=== PATIENT | female | born 1965 | race Caucasian/White ===

== ENCOUNTER 2021-04-03 13:25 | Emergency (ER) | payer SELFPAY ==
[~2021-04-03] VITALS: Ht 160 cm; Wt 77.0 kg
[~2021-04-03 13:25] MED LIST: TRAM50TA2 PO
--- NOTE | 2021-04-03 13:43 | ED Upper Extremity ---
General Chief Complaint: Trauma-Non Activation Stated Complaint: R ARM AND L LEG PAIN- FELL Nursing Triage Note: ARRIVED VIA AMB TO FAST TRACK WITH A OBVIOUS DEFORMITY TO HER RIGHT HAND/WIRST. STATES SHE WAS CHASING HER DOG AND FELL GETTING COUGHT IN THE PORCH RAILING GOING OVER THE TOP LANDING ON HER HEAD. COMPLAINS OF RIGHT HAND AND LEFT LEG PAIN. Source: patient Exam Limitations: no limitations (GABY ESTEVES APRN) History of Present Illness Date Seen by Provider: Apr 03, 2021 Time Seen by Provider: 13:41 Initial Comments To ER with c/o right wrist pain and deformity after fall off of porch railing while chasing her dog. Did hit her head but no loc, no headache no vomiting no OAC use. Also c/o left knee pain Onset: just prior to arrival Severity: moderate Pain/Injury Location: right wrist Method of Injury: fell Modifying Factors: Worse With Movement (GABY ESTEVES APRN) Allergies and Home Medications Allergies Coded Allergies: No Known Drug Allergies (Unverified , 09/26/14) Patient Home Medication List Home Medication List Reviewed: Yes (GABY ESTEVES APRN) Hydrocodone/Acetaminophen (Hydrocodone-Acetamin 5-325 mg) 1 Each Tablet, 1 TAB PO Q4H PRN for PAIN-MODERATE (5-7) Prescribed by: GABY ESTEVES on 04/03/21 1430 Tramadol Hcl (Tramadol Hcl) 50 Mg Tablet, 50 MG PO Q6H Prescribed by: JAXSON HASSAN on 09/26/14 1607 Review of Systems Constitutional: see HPI EENTM: see HPI Respiratory: no symptoms reported Cardiovascular: no symptoms reported Genitourinary: no symptoms reported Musculoskeletal: no symptoms reported Skin: no symptoms reported Psychiatric/Neurological: No Symptoms Reported (GABY ESTEVES APRN) Past Llslvrf-Kwbdam-Yhxknv Hx Patient Social History Smoking Status: Never a Smoker Substance use?: No Alcohol Use?: No (GABY ESTEVES APRN) Immunizations Up To Date Second COVID19 Vaccination Cash: 03/10 COVID19 Vaccine Business Intelligence Developer: UNKNOWN (GABY ESTEVES APRN) Seasonal Allergies Seasonal Allergies: No (GABY ESTEVES APRN) Past Medical History Adenoidectomy, Appendectomy, Tonsillectomy Chronic Constipation (GABY ESTEVES APRN) Family Medical History No Pertinent Family Hx (GABY ESTEVES APRN) Physical Exam Vital Signs Vital Signs - First Documented 04/03/21 04/03/21 13:30 15:16 Temp 36.3 Pulse 114 Resp 16 B/P (MAP) 146/91 (109) Pulse Ox 96 O2 Delivery Room Air (DELMY HEDRICK ) Vital Signs Capillary Refill : Less Than 3 Seconds (GABY ESTEVES APRN) Height, Weight, BMI Height: 5'5" Weight: 131lbs. oz. 59.835708sz; 30.00 BMI Method:Stated General Appearance: WD/WN, no apparent distress Respiratory: no respiratory distress, no accessory muscle use Shoulder: normal inspection, non-tender Elbow/Forearm: normal inspection, non-tender, no evidence of injury Wrist: Yes deformity (no abrasions or lacerations to suggest open fracture), Yes limited ROM Hand: normal inspection, non-tender, Right Neurologic/Tendon: normal motor functions Neurologic/Psychiatric: alert, normal mood/affect, oriented x 3 Skin: normal color, warm/dry (GABY ESTEVES APRN) Progress/Results/Core Measures Results/Orders Blood Pressure Mean: 109 Departure Communication (Admissions) Family Conversation 1510-placed in sugar tong splint using 3 inch ortoglass. NAME: UZMA GUARDADO MED REC#: [id number] PT STATUS: REG ER : 1965 PHYSICIAN: GABY ESTEVES APRN ADMIT DATE: 04/03/21/ER Draft Date of Exam:04/03/21 WRIST, RIGHT, 3 VIEWS OR MORE EXAMINATION: Right wrist radiographs, 3 views. COMPARISON: None. HISTORY: 55-year-old female, right wrist pain and injury. FINDINGS: There is a dorsal displaced and angulated fracture of the distal radial metaphysis. There is probable intra-articular fracture extension in the region of the lunate fossa on the oblique view. There is also a displaced fracture extending through the base of the ulnar styloid. 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 There is no identified radiopaque foreign body. IMPRESSION: 1. Dorsally displaced and angulated fracture of the distal radial metaphysis with probable intra-articular fracture extension to the lunate fossa. 2. Displaced fracture through the base of the ulnar styloid. Dictated on workstation # [id number] Dict: 04/03/21 1406 Trans: 04/03/[address] [facility] [id number] Interpreted by: ADDIE LINARES MD Electronically signed by: (GABY ESTEVES APRN) Impression Primary Impression: Wrist fracture, closed Disposition: 01 HOME, SELF-CARE Condition: Stable Departure-Patient Inst. Decision time for Depature: 14:27 (GABY ESTEVES APRN) Referrals: NO,LOCAL PHYSICIAN (PCP) Primary Care Physician STEPHANIE LYON MD, MICHAEL P MD Patient Instructions: Wrist Fracture (DC) Add. Discharge Instructions: 1. splint at all times until you follow up with orthopedics. Call an orthopedist of your choosing on Tuesday to make an appointment to be seen next week. Elevate the wrist as much as possible. Take pain medication as directed. All discharge instructions reviewed with patient and/or family. Voiced understanding. Scripts Hydrocodone/Acetaminophen (Hydrocodone-Acetamin 5-325 mg) 1 Each Tablet 1 TAB PO Q4H PRN for PAIN-MODERATE (5-7), #20 TAB Prov: GABY ESTEVES APRN 04/03/21 ATTENDING PHYSICIAN NOTE: I WAS PHYSICALLY PRESENT ER PHYSICIAN WHEN THIS PATIENT WAS IN ER, BUT I WAS NOT INVOLVED IN DECISION MAKING OR ANY CARE OF THIS PATIENT. (DELMY HEDRICK DO) GABY ESTEVES APRN Apr 03, 2021 13:43 DELMY HEDRICK DO Apr 05, 2021 20:20
[2021-04-03] MEDS ORDERED: KETOROLAC 30 MG/ML VIAL IVP ONE (13:45)
[2021-04-03] MEDS ORDERED: fentaNYL INJ 100 MCG/2 ML AMP IVP ONE (13:45)
--- NOTE | 2021-04-03 14:18 | Diagnostic Imaging Report ---
EXAMINATION: Right wrist radiographs, 3 views. COMPARISON: None. HISTORY: 55-year-old female, right wrist pain and injury. FINDINGS: There is a dorsal displaced and angulated fracture of the distal radial metaphysis. There is probable intra-articular fracture extension in the region of the lunate fossa on the oblique view. There is also a displaced fracture extending through the base of the ulnar styloid. 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 There is no identified radiopaque foreign body. IMPRESSION: 1. Dorsally displaced and angulated fracture of the distal radial metaphysis with probable intra-articular fracture extension to the lunate fossa. 2. Displaced fracture through the base of the ulnar styloid. Dictated by: Dictated on workstation # [id number]
[2021-04-03] MEDS ORDERED: ACHD5005 PO (14:29)
--- NOTE | 2021-04-03 14:55 | Diagnostic Imaging Report ---
INDICATION: Left leg injury from a fall. FINDINGS: AP and lateral views of the left tibia-fibula show no fracture, dislocation, or other acute abnormalities. IMPRESSION: Negative left tibia-fibula. Dictated by: Dictated on workstation # [id number]
[2021-04-03] MEDS ORDERED: HYDROcodone/APAP 5 MG/325 MG (LORTAB) TAB PO ONE (15:00)
[2021-04-03 15:16] VITALS: BP 132/82
== END 2021-04-03 15:16 | disposition home or self-care (01) ==
LOC: EDUNIT# 13:25 → ER 13:27
DX: S52.611A Displaced fracture of right ulna styloid process, initial encounter for closed fracture (principal); S52.591A Other fractures of lower end of right radius, initial encounter for closed fracture; W17.89XA Other fall from one level to another, initial encounter
CPT/HCPCS: 29105; 73110; 73590

== ENCOUNTER 2021-05-06 12:34 | Emergency (ER) | payer SELFPAY ==
[~2021-05-06] VITALS: Ht 165 cm; Wt 72.0 kg
[~2021-05-06 12:34] MED LIST changes: +ACHD5005 PO
[2021-05-06 12:35] VITALS: BP 132/94
[2021-05-06] MEDS ORDERED: SULF1TAB38 PO (13:09)
--- NOTE | 2021-05-06 13:09 | ED Integumentary General ---
General Chief Complaint: Skin/Wound Problems Stated Complaint: KNOT ON RIGHT SIDE OF HEAD Nursing Triage Note: ARRIVED VIA AMB WITH COMPLAINTS OF A KNOT ABSCESS ON THE RIGHT SIDE OF HIS HEAD. Source: patient Exam Limitations: no limitations History of Present Illness Date Seen by Provider: May 06, 2021 Time Seen by Provider: 12:20 Initial Comments Patient to the ER by private conveyance with chief complaint for 5 days of swelling on the right side of her head. She wears a wig and she thinks maybe the glue caused some infection. She has drained a couple times in the keeps growing. She is not on antibiotics. She does not follow with a primary care doctor. She is not on any immunocompromising medications. Allergies and Home Medications Allergies Coded Allergies: No Known Drug Allergies (Unverified , 09/26/14) Patient Home Medication List Home Medication List Reviewed: Yes Hydrocodone/Acetaminophen (Hydrocodone-Acetamin 5-325 mg) 1 Each Tablet, 1 TAB PO Q4H PRN for PAIN-MODERATE (5-7) Prescribed by: GABY ESTEVES on 04/03/21 1430 Tramadol Hcl (Tramadol Hcl) 50 Mg Tablet, 50 MG PO Q6H Prescribed by: JAXSON HASSAN on 09/26/14 1607 Review of Systems Review of Systems Constitutional: No chills, No diaphoresis EENTM: No ear discharge, No ear pain Respiratory: No cough, No phlegm Cardiovascular: No chest pain, No palpitations Gastrointestinal: No abdominal pain, No nausea Genitourinary: No discharge, No dysuria Musculoskeletal: No back pain, No joint pain Skin: see HPI All Other Systems Reviewed Negative Unless Noted: Yes Past Zrmkvtt-Igkvlq-Swionm Hx Patient Social History Tobacco Use?: No Smoking Status: Never a Smoker Use of E-Cig and/or Vaping dev: No Substance use?: No Alcohol Use?: No Immunizations Up To Date Second COVID19 Vaccination Cash: 03/10 Seasonal Allergies Seasonal Allergies: No Past Medical History Adenoidectomy, Appendectomy, Tonsillectomy Chronic Constipation Family Medical History No Pertinent Family Hx Physical Exam Vital Signs Vital Signs - First Documented 05/06/21 12:35 Temp 36.9 Pulse 109 Resp 16 B/P (MAP) 132/94 (107) Pulse Ox 97 O2 Delivery Room Air Capillary Refill : Less Than 3 Seconds General Appearance: WD/WN, no apparent distress HEENT: PERRL/EOMI, pharynx normal Neck: full range of motion, normal inspection Cardiovascular: normal peripheral pulses, regular rate, rhythm Respiratory: no respiratory distress, no accessory muscle use Skin: other (3 cm round nodule with fluctuance over the right frontal/parietal scalp with no central pointing.) Procedures/Interventions I&D : Site: Right frontal parietal scalp Blade Size: 11 I & D Procedure: betadine prep (Alcohol), sterile dressing applied Progress Skin was cleaned with alcohol, infiltrated with 1 cc of 1% lidocaine without epinephrine. When the skin was ascertained to be numb we used an 11 blade scalpel to make a crosswise incision and expressed about 3 to 5 cc of thin purulent material. Patient tolerated well. Clean dry sterile gauze dressing was placed. Progress/Results/Core Measures Results/Orders Vital Signs/I&O 05/06/21 12:35 Temp 36.9 Pulse 109 Resp 16 B/P (MAP) 132/94 (107) Pulse Ox 97 O2 Delivery Room Air Blood Pressure Mean: 107 Departure Impression Primary Impression: Abscess Disposition: 01 HOME, SELF-CARE Condition: Stable Departure-Patient Inst. Decision time for Depature: 13:07 Referrals: NO,LOCAL PHYSICIAN (PCP/Family) Primary Care Physician Patient Instructions: Abscess Incision and Drainage (DC) Add. Discharge Instructions: Keep skin clean with regular soap and water or shampoo. Change the dressing at least daily or more frequently for becomes soiled until it stops draining. Bactrim 1 tablet twice a day for the next week to prevent recurrence. All discharge instructions reviewed with patient and/or family. Voiced understanding. Scripts Sulfamethoxazole/Trimethoprim (Bactrim Ds Tablet) 1 Each Tablet 1 EACH PO BID for 7 Days, #14 TAB 0 Refills Prov: TABATHA FAYE 05/06/21 Work/School Note: Work Release Form Date Seen in the Emergency Department: May 06, 2021 Return to Work: May 07, 2021 Restrictions: No Restrictions TABATHA FAYE May 06, 2021 13:09
== END 2021-05-06 13:11 | disposition home or self-care (01) ==
LOC: EDUNIT# 12:34 → ER 12:35
DX: L02.811 Cutaneous abscess of head [any part, except face] (principal)
CPT/HCPCS: 10060

== ENCOUNTER 2021-05-23 18:35 | Emergency (ER) | payer SELFPAY ==
[~2021-05-23] VITALS: Ht 160 cm; Wt 79.0 kg
[~2021-05-23 18:35] MED LIST changes: +SULF1TAB38 PO
--- NOTE | 2021-05-23 19:04 | ED Upper Extremity ---
General Stated Complaint: FALL/RECHECK RIGHT WRIST Source: patient Exam Limitations: no limitations History of Present Illness Date Seen by Provider: May 23, 2021 Time Seen by Provider: 18:56 Initial Comments To ER with reports of a fall twice and is not sure if she reinjured her already broken right wrist. I saw her here on April 03 of this year for a dorsally displaced right radius fracture. She was placed in a sugar tong splint and instructed to follow-up with orthopedics. She was given a prescription for hydrocodone. She has not made attempts to follow-up with orthopedics and she has removed the splint that I placed at that time. She comes in today due to ongoing swelling and pain in her wrist. She is been smoking meth to help with the pain she informed RN. Onset: other Severity: moderate Pain/Injury Location: right wrist Method of Injury: fell Modifying Factors: Worse With Movement Allergies and Home Medications Allergies Coded Allergies: No Known Drug Allergies (Unverified , 09/26/14) Patient Home Medication List Home Medication List Reviewed: Yes Hydrocodone/Acetaminophen (Hydrocodone-Acetamin 5-325 mg) 1 Each Tablet, 1 TAB PO Q4H PRN for PAIN-MODERATE (5-7) Prescribed by: GABY ESTEVES on 04/03/21 1430 Sulfamethoxazole/Trimethoprim (Bactrim Ds Tablet) 1 Each Tablet, 1 EACH PO BID Prescribed by: TABATHA FAYE on 05/06/21 1309 Tramadol Hcl (Tramadol Hcl) 50 Mg Tablet, 50 MG PO Q6H Prescribed by: JAXSON HASSAN on 09/26/14 1607 Review of Systems Constitutional: see HPI EENTM: see HPI Respiratory: no symptoms reported Cardiovascular: no symptoms reported Genitourinary: no symptoms reported Musculoskeletal: see HPI Skin: no symptoms reported Psychiatric/Neurological: No Symptoms Reported Past Akfbbtz-Djczzn-Zhkysg Hx Immunizations Up To Date Second COVID19 Vaccination Cash: 03/10 Seasonal Allergies Seasonal Allergies: No Past Medical History Adenoidectomy, Appendectomy, Tonsillectomy Chronic Constipation Family Medical History No Pertinent Family Hx Physical Exam Vital Signs Vital Signs - First Documented 05/23/21 18:45 Temp 36.4 Pulse 86 Resp 18 B/P (MAP) 127/84 (98) Pulse Ox 96 O2 Delivery Room Air Capillary Refill : Height, Weight, BMI Height: 5'5" Weight: 131lbs. oz. 59.013681hp; 26.00 BMI Method:Stated General Appearance: WD/WN, no apparent distress Respiratory: no respiratory distress, no accessory muscle use Shoulder: normal inspection, non-tender Elbow/Forearm: normal inspection, non-tender Wrist: Yes deformity, Yes limited ROM, Yes pain, Yes soft tissue tenderness Hand: normal inspection, non-tender Neurologic/Psychiatric: alert, normal mood/affect, oriented x 3 Skin: normal color, warm/dry Progress/Results/Core Measures Results/Orders My Orders Orders - GABY ESTEVES APRN Wrist, Right, 3 Views Or More (05/23/21 18:53) Rx-Hydrocodone/Apap 5-325 Mg (Rx-Vicodin (05/23/21 19:00) Medications Given in ED Current Medications Medications Dose Ordered Sig/Rebeca Route Start Time Stop Time Status Last Admin Dose Admin Acetaminophen/ Hydrocodone Bitart 1 ea Q4H PRN PO 05/23/21 19:00 05/23/21 19:14 1 EA Vital Signs/I&O 05/23/21 18:45 Temp 36.4 Pulse 86 Resp 18 B/P (MAP) 127/84 (98) Pulse Ox 96 O2 Delivery Room Air Departure Communication (Admissions) NAME: UZMA GUARDADO [facility] REC#: [id number] PT STATUS: REG ER : 1965 PHYSICIAN: GABY ESTEVES APRN ADMIT DATE: 05/23/21/ER Draft Date of Exam:05/23/21 WRIST, RIGHT, 3 VIEWS OR MORE INDICATION: Status post fall a month ago. Recent fall today. TECHNIQUE: Three views of the right wrist. CORRELATION STUDY: 04/03/2021. FINDINGS: Overlying splint material is present obscuring detail. There is again demonstration of a comminuted, impacted, distal right radius fracture. There has been significant progression in the severity of dorsal displacement, now nearly the width of the bone. Significant impaction retraction of the main distal fracture fragment. The carpal bones are displaced with the distal radial component. Impacted outwardly displaced radial styloid fracture is also noted. Advanced degenerative changes at the base of the thumb. Additional degenerative changes at the scaphoid trapezium/trapezoid articulation with osteophyte formation. IMPRESSION: 1. Dorsally displaced angulated fracture at the distal radius. There has been increase in severity of dorsal displacement and severity of retraction impaction when compared to prior study. 2. Displaced fracture through the base of the ulnar styloid is again demonstrated as well. Dictated on workstation # [id number] Dict: 05/23/211932 Trans: 05/23/211937 PJE [id number] Interpreted by: YSABEL SANTIAGO DO Electronically signed by: Given a volar wrist splint Impression Primary Impression: Wrist fracture, closed Disposition: 01 HOME, SELF-CARE Condition: Stable Departure-Patient Inst. Decision time for Depature: 18:58 Referrals: NO,LOCAL PHYSICIAN (PCP) Primary Care Physician STEPHANIE LYON MD,JM GILLESPIE MD, MD Patient Instructions: Wrist Fracture (DC) Add. Discharge Instructions: 1. Once again, you must follow-up with orthopedics. Call one of the physicians listed Tuesday to make an appointment to be seen for follow-up. GABY ESTEVES STUDIO MANAGER May 23, 2021 19:03
--- NOTE | 2021-05-23 19:38 | Diagnostic Imaging Report ---
INDICATION: Status post fall a month ago. Recent fall today. TECHNIQUE: Three views of the right wrist. CORRELATION STUDY: 04/03/2021. FINDINGS: Overlying splint material is present obscuring detail. There is again demonstration of a comminuted, impacted, distal right radius fracture. There has been significant progression in the severity of dorsal displacement, now nearly the width of the bone. Significant impaction retraction of the main distal fracture fragment. The carpal bones are displaced with the distal radial component. Impacted outwardly displaced radial styloid fracture is also noted. Advanced degenerative changes at the base of the thumb. Additional degenerative changes at the scaphoid trapezium/trapezoid articulation with osteophyte formation. IMPRESSION: 1. Dorsally displaced angulated fracture at the distal radius. There has been increase in severity of dorsal displacement and severity of retraction impaction when compared to prior study. 2. Displaced fracture through the base of the ulnar styloid is again demonstrated as well. Dictated by: Dictated on workstation # [id number]
[2021-05-23 19:55] VITALS: BP 127/79
== END 2021-05-23 19:56 | disposition home or self-care (01) ==
LOC: EDUNIT# 18:35 → ER 18:39
DX: S52.501D Unspecified fracture of the lower end of right radius, subsequent encounter for closed fracture with routine healing (principal); S52.611D Displaced fracture of right ulna styloid process, subsequent encounter for closed fracture with routine healing; W19.XXXD Unspecified fall, subsequent encounter
CPT/HCPCS: 73110; 99283

== ENCOUNTER 2022-12-06 19:08 | Inpatient (IN) | payer SELFPAY ==
[~2022-12-06] VITALS: Ht 165.1 cm; Wt 79.0 kg
[~2022-12-06 19:08] MED LIST changes: +ACETAMINOPHEN 500 MG TAB (TYLENOL) PO PRN; +ASPIRIN 81 MG CHEW (CHILDREN'S ASA) PO ONE; +CEFEPIME 1,000 MG/NS 50 ML IVPB IV NR; +ENOXAPARIN 80 MG/0.8 ML (LOVENOX) SYR SC ONE; +IOHEXOL 350 MG/ML 100 ML (OMNIPAQUE 350) VIAL IV ONE; +NS 100 ML (IVPB) BAG IV ONE; +NS IV 1000 ML 1,000 ML IV SCH; +cefTRIAXone INJ 2,000 MG in NS (IVPB) 50 ML IV SCH
[2022-12-06] MEDS ORDERED: KCL 20 MEQ TAB (K-DUR) PO NR (19:30)
[2022-12-06] MEDS ORDERED: diphenhydrAMINE 50 MG/ML INJ (BENADRYL) IVP PRN (19:30)
[2022-12-06] MEDS ORDERED: polyethylene glycoL POWDER 17 GM (MIRALAX) PACK PO PRN (19:30)
[2022-12-06] MEDS ORDERED: ONDANSETRON 4 MG (ZOFRAN) ORAL DISSOLVE TAB PO PRN (19:30)
[2022-12-06] MEDS ORDERED: ANTACID SUSP 30 ML UDC (MYLANTA) PO PRN (19:30)
[2022-12-06] MEDS ORDERED: MILK OF MAGNESIA 400 MG/5 ML 30 ML UDC PO PRN (19:30)
[2022-12-06] MEDS ORDERED: CALCIUM CARBONATE 500 MG (TUMS) TAB.CHEW PO PRN (19:30)
[2022-12-06] MEDS ORDERED: LACTULOSE SYRUP 10GM/15ML (ENULOSE) 30ML UDC PO PRN (19:30)
[2022-12-06] MEDS ORDERED: diphenhydrAMINE 25 MG TAB (BENADRYL) PO PRN (19:30)
[2022-12-06] MEDS ORDERED: BISACODYL 10 MG SUPP (DULCOLAX) PR PRN (19:30)
[2022-12-06] MEDS: LACTATED RINGERS 1,000 ML IV SCH (19:51)
[2022-12-06] MEDS ORDERED: AZITHROMYCIN 500 MG/NS 250 ML IVPB IV SCH ×2 (20:00)
[2022-12-06] MEDS: RT-ALBUTEROL/IPRATROPIUM 3 ML (DUONEB) VIAL IH SCH (21:49)
[2022-12-07] MEDS ORDERED: CEFEPIME 1,000 MG/NS 50 ML IVPB IV SCH ×2
[2022-12-07] MEDS: RT-ALBUTEROL/IPRATROPIUM 3 ML (DUONEB) VIAL IH SCH ×4 (02:35→21:58)
[2022-12-07] MEDS: ACETAMINOPHEN 325 MG TABLET PO PRN (02:42)
[2022-12-07] MEDS: IBUPROFEN TABLET 200 MG TAB PO PRN ×3 (03:22→16:43)
[2022-12-07] MEDS ORDERED: NS IV 1000 ML 1,000 ML IV SCH (03:30)
[2022-12-07 08:00] VITALS: BP 85/53
[2022-12-07] MEDS ORDERED: cefTRIAXone 2,000 MG/NS 50 ML IVPB IV ONE ×2 (10:00)
[2022-12-07 12:00] VITALS: BP 99/63
[2022-12-07 15:18] VITALS: BP 90/55
[2022-12-07 16:35] VITALS: BP 109/72
[2022-12-07] MEDS: fentaNYL INJ 100 MCG/2 ML AMP IV PRN (16:42)
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
[2022-12-07] MEDS ORDERED: LACTATED RINGERS 1,000 ML IV SCH (17:45)
[2022-12-07] MEDS: ENOXAPARIN 40 MG/0.4 ML (LOVENOX) SYR SC SCH (17:50)
[2022-12-07] MEDS: LACTATED RINGERS 1,000 ML IV SCH ×2 (17:53→20:44)
[2022-12-07] MEDS: CLINDAMYCIN 900 MG/50 ML IVPB 50 ML IV SCH (17:59)
[2022-12-07] MEDS ORDERED: LACTATED RINGERS 1,000 ML IV STA (18:19)
[2022-12-07 20:02] VITALS: BP 103/69
[2022-12-07] MEDS: cefTRIAXone INJ 2,000 MG in NS (IVPB) 50 ML IV SCH (21:40)
[2022-12-07 23:09] VITALS: BP 99/64
[2022-12-08] MEDS: CLINDAMYCIN 900 MG/50 ML IVPB 50 ML IV SCH ×3 (02:52→16:31)
[2022-12-08] MEDS: fentaNYL INJ 100 MCG/2 ML AMP IV PRN ×2 (02:53→20:01)
[2022-12-08] MEDS: RT-ALBUTEROL/IPRATROPIUM 3 ML (DUONEB) VIAL IH SCH ×4 (02:56→22:05)
[2022-12-08 03:35] VITALS: BP 107/66
[2022-12-08] MEDS: LACTATED RINGERS 1,000 ML IV SCH ×4 (06:32→16:31)
[2022-12-08 07:43] LABS: EOSINOPHILS % (AUTO) 0 % (0-10); HEMATOCRIT 34 % (35-52); MEAN CORPUSCULAR VOLUME 94 fL (80-99); MEAN PLATELET VOLUME 11.5 fL (9.0-12.2)
[2022-12-08 07:44] LABS: BASOPHILS % (AUTO) 0 % (0-10); HEMOGLOBIN 11.7 g/dL (11.5-16.0); LYMPHOCYTES % (AUTO) 15 % (12-44); MEAN CORPUSCULAR HEMOGLOBIN 32 pg (25-34); MEAN CORPUSCULAR HGB CONC 34 g/dL (32-36); MONOCYTES # (AUTO) 0.7 10^3/uL (0.0-1.0); MONOCYTES % (AUTO) 12 % (0-12); NEUTROPHILS # (AUTO) 4.6 10^3/uL (1.8-7.8); NEUTROPHILS % (AUTO) 72 % (42-75); PLATELET COUNT 64 10^3/uL (130-400); WHITE BLOOD COUNT 6.4 10^3/uL (4.3-11.0)
[2022-12-08 07:46] VITALS: BP 103/56
[2022-12-08 08:04] LABS: POTASSIUM 3.3 MMOL/L (3.6-5.0)
[2022-12-08 08:06] LABS: CALCIUM 7.9 MG/DL (8.5-10.1)
[2022-12-08 08:10] LABS: CREATININE SERUM 0.56 MG/DL (0.60-1.30)
--- NOTE | 2022-12-08 08:28 | Diagnostic Imaging Report ---
INDICATION: Chest pain. Frontal chest obtained at 5:13 p.m. and compared to 05/12/2022. FINDINGS: Heart is normal in size. There is no infiltrate in the right lung base suspicious for pneumonia. There is no pneumothorax or pleural fluid. IMPRESSION: New infiltrate in the right lung base suspicious for pneumonia. Dictated by: Dictated on workstation # [id number]
--- NOTE | 2022-12-08 08:28 | Diagnostic Imaging Report ---
Technique: CTA of the chest was performed with contrast. 3-D reformats were obtained and reviewed. Dose reduction techniques were utilized. COMPARISON: Chest radiograph performed earlier the same day. Reason for exam: Shortness of breath. Chest pain. Elevated D-dimer. FINDINGS: This helical CT pulmonary angiogram is diagnostic to the subsegmental level branches of the pulmonary artery and demonstrates no pulmonary emboli. The heart and great vessels are unremarkable. There is no pericardial effusion. There is no axillary, mediastinal, or hilar adenopathy. Trace right-sided pleural effusion is seen with dependent opacities in the lung bases, right greater than left. Osseous structures appear normal. Posterior fusion changes are visualized from T12 extending into the lumbar spine. There is diffuse wall thickening of the esophagus. There is suggestion of edema within the posterior mediastinum Nodular contour of the liver is seen. There is hepatosplenomegaly. IMPRESSION: 1. No acute pulmonary embolus. 2. Trace right-sided pleural effusion with dependent opacities in the lung bases. Findings may represent atelectasis and/or infection. 3. Diffuse wall thickening of the esophagus. Findings could represent esophagitis. Malignancy is not excluded and correlation with patient history and symptoms is recommended. Endoscopy may also be considered to further evaluate. 4. Nodular contour of the liver, which can be seen with cirrhosis. Hepatosplenomegaly is also noted. Dictated by: Dictated on workstation # [id number]
[2022-12-08] MEDS: SENNOSIDES 8.6 MG (SENOKOT) TAB PO SCH ×2 (09:12→21:20)
[2022-12-08] MEDS: cefTRIAXone INJ 2,000 MG in NS (IVPB) 50 ML IV SCH ×2 (09:12→20:06)
[2022-12-08] MEDS: DOCUSATE SODIUM 100 MG (COLACE) CAP PO SCH ×2 (09:12→21:20)
[2022-12-08 10:13] LABS: HEMATOCRIT 41 % (35-52); HEMOGLOBIN 14.4 g/dL (11.5-16.0); MEAN CORPUSCULAR HEMOGLOBIN 32 pg (25-34); MEAN CORPUSCULAR HGB CONC 35 g/dL (32-36); MEAN CORPUSCULAR VOLUME 92 fL (80-99); WHITE BLOOD COUNT 8.9 10^3/uL (4.3-11.0)
[2022-12-08 10:14] LABS: BASOPHILS % (AUTO) 1 % (0-10); EOSINOPHILS % (AUTO) 1 % (0-10); LYMPHOCYTES # (AUTO) 1.1 X 10^3 (1.0-4.0); LYMPHOCYTES % (AUTO) 12 % (12-44); MEAN PLATELET VOLUME 10.4 fL (9.0-12.2); MONOCYTES # (AUTO) 0.9 X 10^3 (0.0-1.0); MONOCYTES % (AUTO) 10 % (0-12); NEUTROPHILS # (AUTO) 6.7 X 10^3 (1.8-7.8); NEUTROPHILS % (AUTO) 76 % (42-75); PLATELET COUNT 64 10^3/uL (130-400)
[2022-12-08 10:16] LABS: FIBRIN DEGRADATION PRODUCTS 3.42 UG/ML (0.00-0.49); INR 1.2 (0.8-1.4); PROTHROMBIN TIME PATIENT 14.9 SEC (12.2-14.7)
[2022-12-08 10:17] LABS: ALANINE AMINOTRANSFERASE 126 U/L (0-55); ALKALINE PHOSPHATASE 73 U/L (40-136); BILIRUBIN,TOTAL 1.5 MG/DL (0.1-1.0); BUN/CREATININE RATIO 22; CALCIUM 8.8 MG/DL (8.5-10.1); CARBON DIOXIDE 19 MMOL/L (21-32); CHLORIDE 99 MMOL/L (98-107); CREATININE SERUM 0.79 MG/DL (0.60-1.30); GFR ESTIMATED 87; GLUCOSE 129 MG/DL (70-105); POTASSIUM 3.1 MMOL/L (3.6-5.0); SODIUM 126 MMOL/L (135-145)
[2022-12-08 10:18] LABS: ALBUMIN 3.3 GM/DL (3.2-4.5); LIPASE 19 U/L (8-78); TOTAL PROTEIN 7.4 GM/DL (6.4-8.2)
[2022-12-08 10:22] LABS: HEMOGLOBIN 11.5 g/dL (11.5-16.0); MEAN CORPUSCULAR HEMOGLOBIN 32 pg (25-34); WHITE BLOOD COUNT 6.5 10^3/uL (4.3-11.0)
[2022-12-08 10:23] LABS: BASOPHILS % (AUTO) 0 % (0-10); EOSINOPHILS % (AUTO) 0 % (0-10); HEMATOCRIT 34 % (35-52); LYMPHOCYTES # (AUTO) 0.9 X 10^3 (1.0-4.0); LYMPHOCYTES % (AUTO) 13 % (12-44); MEAN CORPUSCULAR HGB CONC 34 g/dL (32-36); MEAN CORPUSCULAR VOLUME 94 fL (80-99); MEAN PLATELET VOLUME 11.4 fL (9.0-12.2); MONOCYTES # (AUTO) 0.7 X 10^3 (0.0-1.0); MONOCYTES % (AUTO) 11 % (0-12); NEUTROPHILS # (AUTO) 4.9 X 10^3 (1.8-7.8); NEUTROPHILS % (AUTO) 75 % (42-75); PLATELET COUNT 56 10^3/uL (130-400)
[2022-12-08 10:24] LABS: POTASSIUM 3.3 MMOL/L (3.6-5.0)
[2022-12-08 10:25] LABS: ALBUMIN 2.5 GM/DL (3.2-4.5); BILIRUBIN,TOTAL 1.5 MG/DL (0.1-1.0); CALCIUM 7.7 MG/DL (8.5-10.1); CREATININE SERUM 0.61 MG/DL (0.60-1.30); TOTAL PROTEIN 5.7 GM/DL (6.4-8.2)
[2022-12-08 10:26] LABS: AMPHETAMINE SCREEN, URINE POSITIVE (NEGATIVE); BARBITURATE SCREEN URINE NEGATIVE (NEGATIVE); BENZODIAZEPINES SCREEN URINE NEGATIVE (NEGATIVE); CANNABINOID SCREEN, URINE NEGATIVE (NEGATIVE); COCAINE SCREEN URINE NEGATIVE (NEGATIVE); METHADONE STAT NEGATIVE (NEGATIVE); OPIATE SCREEN URINE NEGATIVE (NEGATIVE); OXYCODONE STAT POSITIVE (NEGATIVE); PROPOXYPHENE STAT NEGATIVE (NEGATIVE); TRICYCLIC ANTIDEPRESSANTS SCRE NEGATIVE (NEGATIVE)
[2022-12-08] MEDS ORDERED: HOLD METFORMIN - RECEIVED CONTRAST 20 ML VIAL IV SCH (10:30)
[2022-12-08] MEDS ORDERED: IOHEXOL 350 MG/ML 100 ML (OMNIPAQUE 350) VIAL IV ONE (10:30)
[2022-12-08] MEDS ORDERED: NS 100 ML (IVPB) BAG IV ONE (10:30)
[2022-12-08 11:28] VITALS: BP 115/60
--- NOTE | 2022-12-08 12:46 | Diagnostic Imaging Report ---
EXAM: CT right wrist with intravenous contrast. DATE: December 08, 2022. INDICATION: 57-year-old female, right hand and wrist pain. History of bacteremia. COMPARISON: Right wrist radiographs May 23, 2021. TECHNIQUE: Axial CT images of the wrist were obtained with intravenous contrast. Coronal and sagittal reformats were obtained and provided. All CT scans use one or more of the following dose optimizing techniques: automated exposure control, MA and/or KvP adjustment based on patient size and exam type or iterative reconstruction. FINDINGS: There is a large first carpometacarpal joint effusion. There is moderate joint space loss of the first carpometacarpal joint. There is osteophyte formation and subchondral cystic change. There is irregularity of the contour of the distal trapezium, perhaps best demonstrated on sagittal image 40 and adjacent sequential images. There is no separate site of cortical or aggressive bone destruction. There is no periosteal reaction. There is dorsal subcutaneous edema at the level of the wrist. There is no identified focal fluid collection or abscess. There is also mild volar subcutaneous edema present at the level of the forearm. There is apparent negative ulnar variance. The additional joint spaces are well preserved. IMPRESSION: Large first carpometacarpal joint effusion and advanced arthritis of the right first carpometacarpal joint which is an interval change since May 23, 2021 at right wrist radiographs. There is also irregularity of the contour of the distal aspect of the trapezium. This is highly concerning for septic arthritis and osteomyelitis of at least the trapezium. Dictated by: Dictated on workstation # [id number]
--- NOTE | 2022-12-08 13:03 | Diagnostic Imaging Report ---
CLINICAL INDICATIONS: Patient with streptococcus pyogenes, bacteremia, and neck pain. EXAM: Axial CT scan of the neck soft tissues performed with 60 cc of Omnipaque 300 IV contrast. Sagittal and coronal reformatted images were created. Auto Exposure Controls were utilized during the CT exam to meet ALARA standards for radiation dose reduction. COMPARISON: None. FINDINGS: There is a 2.0 cm x 1.1 cm x 1.7 cm (AP x Trans x CC) grossly enhancing fluid collection in the periarticular soft tissue adjacent to the C4-C5 facet regions. There is hypertrophic facet arthropathy/hypertrophy seen in the region. There are areas of bony irregularity and cystic changes involving the left C4-C5 facets. Unknown if this fluid collection is related to an inflammatory process or an infectious process. A small abscess in this area could not be completely excluded. The nasopharynx, oropharynx, hypopharynx, and laryngeal soft tissue structures are unremarkable. The visualized portions of the oral cavity, tongue, sublingual, and submandibular regions are unremarkable. The salivary and thyroid glands are unremarkable. There are enlarged lymph nodes in the left supraclavicular region. The largest lymph node measures 1.7 cm x 1.7 cm. There are partially visualized prominent lymph nodes in the upper mediastinum. There is soft tissue swelling/edema seen in the retropharyngeal region from the C3 level to the upper mediastinum. There is worsened soft tissue edema involving the upper mediastinum which is about the trachea and esophagus. There is no abscess seen. There are small bilateral pleural effusions. Interlobular septal thickening is seen. Limited visualization of the intracranial structures is unremarkable. Paranasal sinuses and mastoid air cells are clear. IMPRESSION: 1: There is a small peripherally enhancing fluid collection in the periarticular soft tissues adjacent to the left C3-C4 articular facets. There are hypertrophic bony changes and cystic changes. Unknown if this fluid collection represents a synovial cyst or small abscess. MRI of the cervical spine with and without contrast would better evaluate. 2: There is soft tissue swelling involving the retropharyngeal region seen from the C3 level extending to the mediastinum. There is worsening soft tissue edema involving the upper mediastinum adjacent to the esophagus and trachea. There is no evidence of contained abscess in these areas. 3: There is upper mediastinal lymphadenopathy and lymphadenopathy involving the left supraclavicular region, likely reactive. Dictated by: Dictated on workstation # [id number]
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
[2022-12-08 15:33] VITALS: BP 113/67
--- NOTE | 2022-12-08 15:54 | Consultation - Ortho ---
Consult - Ortho Subjective Date of Exam 12/08/22 Chief Complaint Right base of thumb pain HPI/Events since last exam 2 weeks of increased right base of thumb pain, swelling in hand, difficulty making boat wrapper, history of prior difficulty with hand as well Medical, Surgical History see admit Social History see admit Family History see admit Review of Systems - Allergies: Coded Allergies: Sulfa (Sulfonamide Antibiotics) (Verified Allergy, Unknown, 12/07/22) codeine (Verified Allergy, Unknown, 12/07/22) Home Meds Discontinued Scripts Sulfamethoxazole/Trimethoprim (Bactrim Ds Tablet) 1 Each Tablet, 1 EACH PO BID for 7 Days, #14 TAB 0 Refills Prov:TABATHA FAYE 05/06/21 Hydrocodone/Acetaminophen (Hydrocodone-Acetamin 5-325 mg) 1 Each Tablet, 1 TAB PO Q4H PRN for PAIN-MODERATE (5-7), #20 TAB Prov:GABY ESTEVES PROJECT ACCOUNT MANAGER 04/03/21 Tramadol Hcl (Tramadol Hcl) 50 Mg Tablet, 50 MG PO Q6H for Pain, #20 TAB Prov:JAXSON HASSAN MD 09/26/14 Objective Exam Right Hand: Diffuse swelling, no erythema, stiff with attempting boat wrapper, pain with thumb extension, tender to even light touch of skin Vital Signs Vital Signs Date Time Temp Pulse Resp B/P (MAP) Pulse Ox O2 Delivery O2 Flow Rate FiO2 12/08/22 15:33 37.5 110 20 113/67 (82) 92 Room Air 12/08/22 12:52 122 12/08/22 11:28 37.0 98 18 115/60 (78) 92 Room Air 12/08/22 09:00 Room Air 12/08/22 07:46 37.2 93 18 103/56 (72) 91 Room Air 12/08/22 07:29 91 Room Air 12/08/22 07:20 133 12/08/22 03:35 36.8 110 20 107/66 (80) 92 Room Air 0.00 0.00 12/08/22 03:23 36.8 12/08/22 02:56 91 Room Air 12/08/22 01:00 108 12/07/22 23:09 36.8 109 20 99/64 (76) 92 Room Air 0.00 0.00 12/07/22 20:12 96 Room Air 12/07/22 20:02 37.6 109 20 103/69 (80) 92 Room Air 12/07/22 19:00 118 12/07/22 18:19 124 12/07/22 16:35 36.8 109 18 109/72 (84) 96 Room Air I & O 12/08/22 07:00 Intake Total 1140 ml Balance 1140 ml Lab Results Laboratory Tests 12/08/22 07:32: White Blood Count 6.4, Red Blood Count 3.67L, Hemoglobin 11.7, Hematocrit 34L, Mean Corpuscular Volume 94, Mean Corpuscular Hemoglobin 32, Mean Corpuscular Hemoglobin Concent 34, Red Cell Distribution Width 14.9H, Platelet Count 64L, Mean Platelet Volume 11.5, Immature Granulocyte % (Auto) 1, Neutrophils (%) (Auto) 72, Lymphocytes (%) (Auto) 15, Monocytes (%) (Auto) 12, Eosinophils (%) (Auto) 0, Basophils (%) (Auto) 0, Neutrophils # (Auto) 4.6, Lymphocytes # (Auto) 1.0, Monocytes # (Auto) 0.7, Eosinophils # (Auto) 0.0, Basophils # (Auto) 0.0, Immature Granulocyte # (Auto) 0.1, Percent Immature Platelet Fraction 5.3, Sodium Level 131L, Potassium Level 3.3L, Chloride Level 105, Carbon Dioxide Level 21, Anion Gap 5, Blood Urea Nitrogen 13, Creatinine 0.56L, Estimat Glomerular Filtration Rate 106, BUN/Creatinine Ratio 23, Glucose Level 96, Calcium Level 7.9L Microbiology 12/06/22 Blood Culture - Preliminary, Resulted Streptococcus pyogenes Grp A Imaging CT scan evaluated and discussed significant changes at 1st [facility] [place], radiologist suggested osteomyelitis and septic arthritis based on CT Assessment and Plan Assessment [facility] arthritis Problem List [facility] arthritis Plan Will obtain plain xrays Observe for now Final Diagonsis R [facility] arthritis Level of the visit: Level 3 STEPHANIE LYON MD Dec 08, 2022 15:53
[2022-12-08] MEDS: ENOXAPARIN 40 MG/0.4 ML (LOVENOX) SYR SC SCH (16:30)
--- NOTE | 2022-12-08 16:55 | Diagnostic Imaging Report ---
INDICATION: Right wrist pain. TECHNIQUE: AP, oblique, and lateral views of the right wrist were obtained. COMPARISON: 05/23/2021. FINDINGS: The previous distal radial fracture has healed. There are degenerative changes of the 1st metacarpal joint and triscaphe joint with mild degenerative changes of the radiocarpal joint. IMPRESSION: Degenerative changes of the right wrist, most prominent in the 1st carpometacarpal joint. No acute bony abnormality. Dictated by: Dictated on workstation # [id number]
[2022-12-08 19:39] VITALS: BP 116/66
[2022-12-09] VITALS (8 sets, daily range): BP systolic 98–115; BP diastolic 60–74
[2022-12-09] MEDS: LACTATED RINGERS 1,000 ML IV SCH ×3 (00:53→14:34)
[2022-12-09] MEDS: CLINDAMYCIN 900 MG/50 ML IVPB 50 ML IV SCH (00:53)
[2022-12-09] MEDS: ACETAMINOPHEN 325 MG TABLET PO PRN ×3 (00:59→23:05)
[2022-12-09] MEDS: RT-ALBUTEROL/IPRATROPIUM 3 ML (DUONEB) VIAL IH SCH ×2 (03:21→09:55)
[2022-12-09] MEDS: IBUPROFEN TABLET 200 MG TAB PO PRN ×2 (05:23→14:38)
[2022-12-09 05:25] LABS: BASOPHILS % (AUTO) 0 % (0-10); EOSINOPHILS % (AUTO) 1 % (0-10); HEMATOCRIT 31 % (35-52); HEMOGLOBIN 10.4 g/dL (11.5-16.0); LYMPHOCYTES # (AUTO) 1.3 10^3/uL (1.0-4.0); LYMPHOCYTES % (AUTO) 24 % (12-44); MEAN CORPUSCULAR HEMOGLOBIN 32 pg (25-34); MEAN CORPUSCULAR HGB CONC 34 g/dL (32-36); MEAN CORPUSCULAR VOLUME 94 fL (80-99); MEAN PLATELET VOLUME 10.5 fL (9.0-12.2); MONOCYTES # (AUTO) 0.7 10^3/uL (0.0-1.0); MONOCYTES % (AUTO) 12 % (0-12); NEUTROPHILS # (AUTO) 3.5 10^3/uL (1.8-7.8); NEUTROPHILS % (AUTO) 64 % (42-75); PLATELET COUNT 69 10^3/uL (130-400); WHITE BLOOD COUNT 5.5 10^3/uL (4.3-11.0)
[2022-12-09 05:33] LABS: ALBUMIN 2.3 GM/DL (3.2-4.5); POTASSIUM 2.9 MMOL/L (3.6-5.0)
[2022-12-09 05:34] LABS: CALCIUM 7.8 MG/DL (8.5-10.1)
[2022-12-09 05:36] LABS: TOTAL PROTEIN 5.5 GM/DL (6.4-8.2)
[2022-12-09 05:39] LABS: CREATININE SERUM 0.54 MG/DL (0.60-1.30)
[2022-12-09] MEDS ORDERED: NS IV 500 ML 500 ML IV PRN (09:45)
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
[2022-12-09] MEDS: SENNOSIDES 8.6 MG (SENOKOT) TAB PO SCH ×2 (10:00→20:02)
[2022-12-09] MEDS: DOCUSATE SODIUM 100 MG (COLACE) CAP PO SCH ×2 (10:00→20:02)
[2022-12-09] MEDS: POTASSIUM CL 10MEQ/50ML IVPB 50 ML IV SCH ×4 (10:01→13:31)
[2022-12-09] MEDS: NAFCILLIN INJECTION 2,000 MG in NS (IVPB) 100 ML IV SCH ×4 (10:06→23:03)
[2022-12-09] MEDS: MAGNESIUM 1 GM/100 ML IVPB 100 ML IV SCH ×2 (11:09→12:16)
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
[2022-12-09] MEDS: ENOXAPARIN 40 MG/0.4 ML (LOVENOX) SYR SC SCH (15:53)
--- NOTE | 2022-12-09 16:06 | Progress Note - Ortho ---
Progress Note Subjective Date of Exam 12/09/22 Chief Complaint R Wrist Pain HPI/Events since last exam not much change, ongoing pain diffusely around hand and into forearm Review of Systems - Allergies: Coded Allergies: Sulfa (Sulfonamide Antibiotics) (Verified Allergy, Unknown, 12/07/22) codeine (Verified Allergy, Unknown, 12/07/22) Home Meds Discontinued Scripts Sulfamethoxazole/Trimethoprim (Bactrim Ds Tablet) 1 Each Tablet, 1 EACH PO BID for 7 Days, #14 TAB 0 Refills Prov:TABATHA FAYE 05/06/21 Hydrocodone/Acetaminophen (Hydrocodone-Acetamin 5-325 mg) 1 Each Tablet, 1 TAB PO Q4H PRN for PAIN-MODERATE (5-7), #20 TAB Prov:GABY ESTEVES SOLUTIONS DEVELOPMENT ANALYST 04/03/21 Tramadol Hcl (Tramadol Hcl) 50 Mg Tablet, 50 MG PO Q6H for Pain, #20 TAB Prov:JAXSON HASSAN MD 09/26/14 Objective Exam R Wrist: diffusely tender to light touch, no specific focus, flexes and extends fingers and thumb in limited fashion Vital Signs Vital Signs Date Time Temp Pulse Resp B/P (MAP) Pulse Ox O2 Delivery O2 Flow Rate FiO2 12/09/22 15:45 38.4 107 20 115/74 (88) 93 Room Air 12/09/22 12:48 88 12/09/22 11:23 36.7 91 93 12/09/22 11:05 36.7 91 18 99/62 (74) 93 Room Air 12/09/22 09:55 92 Nasal Cannula 4.00 12/09/22 08:00 Room Air 12/09/22 07:06 36.8 85 18 106/68 (81) 95 Nasal Cannula 4.00 12/09/22 07:00 90 12/09/22 04:00 36.0 97 18 99/66 (77) 95 Room Air 12/09/22 03:21 90 Nasal Cannula 4.00 12/09/22 01:00 110 12/09/22 00:59 38.0 12/09/22 00:54 37.9 106 20 93 Nasal Cannula 4.00 12/09/22 00:00 38.0 103 18 98/61 (73) 90 Nasal Cannula 4.00 12/08/22 20:00 Room Air 12/08/22 19:39 36.5 110 20 116/66 (83) 91 Room Air 12/08/22 19:00 116 I & O 12/09/22 07:00 Intake Total 5970 ml Output Total 1500 ml Balance 4470 ml Lab Results Laboratory Tests 12/09/22 05:15: White Blood Count 5.5, Red Blood Count 3.28L, Hemoglobin 10.4L, Hematocrit 31L, Mean Corpuscular Volume 94, Mean Corpuscular Hemoglobin 32, Mean Corpuscular Hemoglobin Concent 34, Red Cell Distribution Width 14.8H, Platelet Count 69L, Mean Platelet Volume 10.5, Immature Granulocyte % (Auto) 1, Neutrophils (%) (Auto) 64, Lymphocytes (%) (Auto) 24, Monocytes (%) (Auto) 12, Eosinophils (%) (Auto) 1, Basophils (%) (Auto) 0, Neutrophils # (Auto) 3.5, Lymphocytes # (Auto) 1.3, Monocytes # (Auto) 0.7, Eosinophils # (Auto) 0.0, Basophils # (Auto) 0.0, Immature Granulocyte # (Auto) 0.0, Percent Immature Platelet Fraction 4.8, Sodium Level 134L, Potassium Level 2.9L, Chloride Level 106, Carbon Dioxide Level 22, Anion Gap 6, Blood Urea Nitrogen 9, Creatinine 0.54L, Estimat Glomerular Filtration Rate 107, BUN/Creatinine Ratio 17, Glucose Level 101, Calcium Level 7.8L, Corrected Calcium 9.2, Magnesium Level 1.7, Total Bilirubin 1.0, Aspartate Amino Transf (AST/SGOT) 35H, Alanine Aminotransferase (ALT/SGPT) 49, Alkaline Phosphatase 48, Total Protein 5.5L, Albumin 2.3L Microbiology 12/08/22 Blood Culture - Preliminary, Resulted No growth Assessment and Plan Assessment 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
[2022-12-09] MEDS ORDERED: METHYL SALICYLATE/MENTHOL (BENGAY, MUSCLE RUB) 3 OZ TUBE TP PRN (16:15)
[2022-12-09] MEDS: ONDANSETRON 4 MG/2 ML (SDV) Z0FRAN IV PRN (23:07)
[2022-12-10] VITALS (7 sets, daily range): BP systolic 95–137; BP diastolic 53–82
[2022-12-10] MEDS: LACTATED RINGERS 1,000 ML IV SCH ×3 (01:37→18:41)
[2022-12-10] MEDS: NAFCILLIN INJECTION 2,000 MG in NS (IVPB) 100 ML IV SCH ×6 (01:37→22:04)
[2022-12-10] MEDS: IBUPROFEN TABLET 200 MG TAB PO PRN ×2 (01:38→12:10)
[2022-12-10 06:19] LABS: BASOPHILS % (AUTO) 0 % (0-10); MEAN CORPUSCULAR VOLUME 94 fL (80-99)
[2022-12-10 06:21] LABS: EOSINOPHILS # (AUTO) 0.1 10^3/uL (0.0-0.3); EOSINOPHILS % (AUTO) 2 % (0-10); HEMATOCRIT 30 % (35-52); HEMOGLOBIN 10.2 g/dL (11.5-16.0); LYMPHOCYTES # (AUTO) 1.2 10^3/uL (1.0-4.0); LYMPHOCYTES % (AUTO) 26 % (12-44); MEAN CORPUSCULAR HEMOGLOBIN 32 pg (25-34); MEAN CORPUSCULAR HGB CONC 34 g/dL (32-36); MONOCYTES # (AUTO) 0.3 10^3/uL (0.0-1.0); MONOCYTES % (AUTO) 7 % (0-12); NEUTROPHILS # (AUTO) 2.9 10^3/uL (1.8-7.8); NEUTROPHILS % (AUTO) 64 % (42-75); PLATELET COUNT 75 10^3/uL (130-400); WHITE BLOOD COUNT 4.5 10^3/uL (4.3-11.0)
[2022-12-10] MEDS: ONDANSETRON 4 MG/2 ML (SDV) Z0FRAN IV PRN (06:22)
[2022-12-10 06:37] LABS: POTASSIUM 3.4 MMOL/L (3.6-5.0)
[2022-12-10 06:38] LABS: CALCIUM 7.8 MG/DL (8.5-10.1)
[2022-12-10 06:42] LABS: CREATININE SERUM 0.5 MG/DL (0.60-1.30)
[2022-12-10 06:45] LABS: MAGNESIUM 2.1 MG/DL (1.6-2.4)
[2022-12-10] MEDS: POTASSIUM BICARB 20 MEQ (EFFER-K) TABLET PO SCH (06:47)
[2022-12-10] MEDS: KCL 20 MEQ TAB (K-DUR) PO SCH (06:47)
[2022-12-10] MEDS: MAGNESIUM 1 GM/100 ML IVPB 100 ML IV SCH (06:47)
[2022-12-10] MEDS: POTASSIUM CL 10MEQ/50ML IVPB 50 ML IV SCH (06:47)
[2022-12-10] MEDS: RT-ALBUTEROL/IPRATROPIUM 3 ML (DUONEB) VIAL IH SCH ×3 (08:58→20:47)
[2022-12-10] MEDS ORDERED: KCL 20 MEQ TAB (K-DUR) PO ONE (09:00)
[2022-12-10] MEDS: DOCUSATE SODIUM 100 MG (COLACE) CAP PO SCH ×2 (09:30→20:53)
[2022-12-10] MEDS: SENNOSIDES 8.6 MG (SENOKOT) TAB PO SCH ×2 (09:30→20:53)
[2022-12-10] MEDS: ACETAMINOPHEN 325 MG TABLET PO PRN ×2 (12:10→19:50)
[2022-12-10] MEDS: ENOXAPARIN 40 MG/0.4 ML (LOVENOX) SYR SC SCH (16:45)
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
[2022-12-10] MEDS: MELATONIN 3 MG TABLET PO PRN (19:45)
[2022-12-10] MEDS: fentaNYL INJ 100 MCG/2 ML AMP IV PRN (19:46)
--- NOTE | 2022-12-10 22:36 | Progress Note - Surgery ---
Subjective Date Seen by a Provider: Dec 10, 2022 Time Seen by a Provider: 11:40 Subjective/Events-last exam Still with right wrist pain. Left neck pain maybe slightly better. Not feeling well. Provided minimal information with minimal interaction. Denies n/v fever sweats chills shortness of breath or chest pain at this time. Objective Exam Vital Signs Date Time Temp Pulse Resp B/P (MAP) Pulse Ox O2 Delivery O2 Flow Rate FiO2 12/10/22 20:47 Room Air 12/10/22 20:20 37.3 12/10/22 19:50 37.6 12/10/22 19:46 Room Air 12/10/22 19:20 37.6 117 20 120/75 (90) 94 Room Air 12/10/22 16:03 36.2 90 20 110/70 (83) 93 Room Air 12/10/22 14:05 94 Room Air 2.00 12/10/22 12:29 111 12/10/22 11:23 37.1 114 20 137/82 (100) 92 Room Air 12/10/22 08:58 92 Room Air 4.00 12/10/22 08:00 Room Air 12/10/22 07:21 36.1 90 16 113/66 (82) 93 Room Air 12/10/22 07:00 89 12/10/22 03:11 36.3 88 18 95/53 (67) 92 Room Air 12/10/22 02:37 Room Air 12/10/22 01:00 94 12/10/22 00:00 36.8 91 20 102/59 (73) 93 Room Air I & O 12/10/22 07:00 Intake Total 2490 ml Output Total 2000 ml Balance 490 ml Capillary Refill : General Appearance: No Apparent Distress, Chronically ill HEENT: Other (perioral skin lesions) Neck: Normal Inspection, Tender Lateral (left posterolateral) Respiratory: Chest Non Tender, No Accessory Muscle Use, No Respiratory Distress Cardiovascular: Regular Rate, Rhythm, No JVD, Systolic Murmur Gastrointestinal: non tender, soft Extremity: No Pedal Edema, Swelling (tenderness and swelling right wrist ) Neurologic/Psychiatric: Alert, Other (interacts but minimally) Skin: Warm/Dry Lymphatic: No Adenopathy Results Lab Laboratory Tests 12/10/22 05:43: White Blood Count 4.5, Red Blood Count 3.15L, Hemoglobin 10.2L, Hematocrit 30L, Mean Corpuscular Volume 94, Mean Corpuscular Hemoglobin 32, Mean Corpuscular Hemoglobin Concent 34, Red Cell Distribution Width 15.0H, Platelet Count 75L, Mean Platelet Volume 11.0, Immature Granulocyte % (Auto) 1, Neutrophils (%) (Auto) 64, Lymphocytes (%) (Auto) 26, Monocytes (%) (Auto) 7, Eosinophils (%) (Auto) 2, Basophils (%) (Auto) 0, Neutrophils # (Auto) 2.9, Lymphocytes # (Auto) 1.2, Monocytes # (Auto) 0.3, Eosinophils # (Auto) 0.1, Basophils # (Auto) 0.0, Immature Granulocyte # (Auto) 0.0, Percent Immature Platelet Fraction 4.4, Erythrocyte Sedimentation Rate 54H, Sodium Level 140, Potassium Level 3.4L, Chloride Level 109H, Carbon Dioxide Level 24, Anion Gap 7, Blood Urea Nitrogen 10, Creatinine 0.50L, Estimat Glomerular Filtration Rate 109, BUN/Creatinine Ratio 20, Glucose Level 92, Calcium Level 7.8L, Magnesium Level 2.1, C-Reactive Protein High Sensitivity 10.84H Microbiology 12/08/22 Blood Culture - Preliminary, Resulted No growth Assessment/Plan Assessment/Plan Assessment/Plan Pneumonia Swelling of right extremity Methamphetamine use Neck Pain Esophageal thickening On exam did not feel any abnormality to the left neck. Suspect this may be from trauma as well versus small abscess or synovial cyst. Okay to continue to monitor. If any worsening would get an MRI to further evaluate. Continue antibiotics. Ortho consulted for wrist possible septic arthritis Recommended cessation of methamphetamine use Will need egd as outpatient- will follow up after discharge to set up Will follow SINDY SANTOS DO Dec 10, 2022 22:36
[2022-12-11] MEDS: RT-ALBUTEROL/IPRATROPIUM 3 ML (DUONEB) VIAL IH SCH ×5 (00:08→21:29)
[2022-12-11] MEDS: fentaNYL INJ 100 MCG/2 ML AMP IV PRN (01:00)
[2022-12-11] MEDS: NAFCILLIN INJECTION 2,000 MG in NS (IVPB) 100 ML IV SCH ×6 (01:00→21:42)
[2022-12-11] MEDS: ONDANSETRON 4 MG/2 ML (SDV) Z0FRAN IV PRN (01:01)
[2022-12-11 03:03] VITALS: BP 119/64
[2022-12-11 05:13] LABS: HEMOGLOBIN 10.1 g/dL (11.5-16.0)
[2022-12-11 05:15] LABS: BASOPHILS % (AUTO) 0 % (0-10); EOSINOPHILS # (AUTO) 0.1 10^3/uL (0.0-0.3); EOSINOPHILS % (AUTO) 1 % (0-10); HEMATOCRIT 30 % (35-52); LYMPHOCYTES # (AUTO) 1.3 10^3/uL (1.0-4.0); LYMPHOCYTES % (AUTO) 28 % (12-44); MEAN CORPUSCULAR HEMOGLOBIN 32 pg (25-34); MEAN CORPUSCULAR HGB CONC 34 g/dL (32-36); MEAN CORPUSCULAR VOLUME 95 fL (80-99); MEAN PLATELET VOLUME 10.8 fL (9.0-12.2); MONOCYTES # (AUTO) 0.3 10^3/uL (0.0-1.0); MONOCYTES % (AUTO) 7 % (0-12); NEUTROPHILS # (AUTO) 2.9 10^3/uL (1.8-7.8); NEUTROPHILS % (AUTO) 62 % (42-75); PLATELET COUNT 91 10^3/uL (130-400); WHITE BLOOD COUNT 4.7 10^3/uL (4.3-11.0)
[2022-12-11 05:35] LABS: CREATININE SERUM 0.55 MG/DL (0.60-1.30); POTASSIUM 3.6 MMOL/L (3.6-5.0)
[2022-12-11] MEDS: LACTATED RINGERS 1,000 ML IV SCH ×2 (05:40→11:14)
[2022-12-11] MEDS: POTASSIUM BICARB 20 MEQ (EFFER-K) TABLET PO SCH (05:44)
[2022-12-11] MEDS: POTASSIUM CL 10MEQ/50ML IVPB 50 ML IV SCH (05:44)
[2022-12-11] MEDS: MAGNESIUM 1 GM/100 ML IVPB 100 ML IV SCH (05:44)
[2022-12-11] MEDS: KCL 20 MEQ TAB (K-DUR) PO SCH (05:45)
[2022-12-11 07:11] VITALS: BP 116/69
[2022-12-11] MEDS: SENNOSIDES 8.6 MG (SENOKOT) TAB PO SCH ×2 (08:19→21:45)
[2022-12-11] MEDS: DOCUSATE SODIUM 100 MG (COLACE) CAP PO SCH ×2 (08:19→21:45)
[2022-12-11] MEDS ORDERED: KCL 20 MEQ TAB (K-DUR) PO ONE (09:00)
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
[2022-12-11 11:25] VITALS: BP 113/70
--- NOTE | 2022-12-11 13:55 | Progress Note - Surgery ---
Subjective Date Seen by a Provider: Dec 11, 2022 Time Seen by a Provider: 13:55 Subjective/Events-last exam Feeling better she states. Neck and right arm pain improving. Worked with therapy. No new complaints. Denies n/v fever sweats chills shortness of breath or chest pain. Objective Exam Vital Signs Date Time Temp Pulse Resp B/P (MAP) Pulse Ox O2 Delivery O2 Flow Rate FiO2 12/11/22 11:25 36.0 86 18 113/70 (84) 96 Room Air 12/11/22 09:54 Room Air 12/11/22 08:00 Room Air 12/11/22 07:11 35.9 89 18 116/69 (85) 95 Room Air 12/11/22 03:03 36.7 110 20 119/64 (82) 91 Room Air 12/10/22 23:31 37.3 108 18 120/74 (89) 93 Room Air 12/10/22 20:47 Room Air 12/10/22 20:20 37.3 12/10/22 19:50 37.6 12/10/22 19:46 Room Air 12/10/22 19:20 37.6 117 20 120/75 (90) 94 Room Air 12/10/22 16:03 36.2 90 20 110/70 (83) 93 Room Air 12/10/22 14:05 94 Room Air 2.00 I & O 12/11/22 07:00 Intake Total 4190 ml Output Total 250 ml Balance 3940 ml Capillary Refill : General Appearance: No Apparent Distress, Chronically ill HEENT: PERRL/EOMI, Other (perioral skin lesions) Neck: Normal Inspection, Tender Lateral (left posterolateral very minimal) Respiratory: Chest Non Tender, No Accessory Muscle Use, No Respiratory Distress Cardiovascular: Regular Rate, Rhythm, No JVD, Systolic Murmur Gastrointestinal: non tender, soft Extremity: No Pedal Edema, Swelling (tenderness and swelling right wrist decreasing and less tender) Neurologic/Psychiatric: Alert, Depressed Affect Skin: Normal Color, Warm/Dry Lymphatic: No Adenopathy Results Lab Laboratory Tests 12/11/22 05:04: White Blood Count 4.7, Red Blood Count 3.12L, Hemoglobin 10.1L, Hematocrit 30L, Mean Corpuscular Volume 95, Mean Corpuscular Hemoglobin 32, Mean Corpuscular Hemoglobin Concent 34, Red Cell Distribution Width 15.4H, Platelet Count 91L, Mean Platelet Volume 10.8, Immature Granulocyte % (Auto) 2, Neutrophils (%) (Auto) 62, Lymphocytes (%) (Auto) 28, Monocytes (%) (Auto) 7, Eosinophils (%) (Auto) 1, Basophils (%) (Auto) 0, Neutrophils # (Auto) 2.9, Lymphocytes # (Auto) 1.3, Monocytes # (Auto) 0.3, Eosinophils # (Auto) 0.1, Basophils # (Auto) 0.0, Immature Granulocyte # (Auto) 0.1, Percent Immature Platelet Fraction 4.6, Sodium Level 141, Potassium Level 3.6, Chloride Level 110H, Carbon Dioxide Level 24, Anion Gap 7, Blood Urea Nitrogen 6L, Creatinine 0.55L, Estimat Glomerular Filtration Rate 107, BUN/Creatinine Ratio 11, Glucose Level 99, Calcium Level 8.0L, Magnesium Level 2.0 Microbiology 12/08/22 Blood Culture - Preliminary, Resulted No growth Assessment/Plan Assessment/Plan Assessment/Plan Pneumonia Swelling of right extremity Methamphetamine use Neck Pain Esophageal thickening On exam did not feel any abnormality to the left neck. Suspect this may be from trauma as well versus small abscess or synovial cyst. Her pain is improving. If any worsening would get an MRI to further evaluate. Continue antibiotics. Ortho consulted for wrist possible septic arthritis Recommended cessation of methamphetamine use Will need egd as outpatient- will follow up after discharge to set up Will follow SINDY SANTOS DO Dec 11, 2022 13:55
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
[2022-12-11] MEDS: ENOXAPARIN 40 MG/0.4 ML (LOVENOX) SYR SC SCH (16:58)
[2022-12-11] MEDS: MELATONIN 3 MG TABLET PO PRN (21:43)
[2022-12-11] MEDS: ACETAMINOPHEN 325 MG TABLET PO PRN (21:43)
[2022-12-11 22:00] VITALS: BP 136/86
[2022-12-12] MEDS: RT-ALBUTEROL/IPRATROPIUM 3 ML (DUONEB) VIAL IH SCH ×4 (02:36→18:41)
[2022-12-12] MEDS: NAFCILLIN INJECTION 2,000 MG in NS (IVPB) 100 ML IV SCH ×6 (03:07→22:07)
[2022-12-12 04:56] LABS: BASOPHILS % (AUTO) 0 % (0-10)
[2022-12-12 04:58] LABS: EOSINOPHILS # (AUTO) 0.1 10^3/uL (0.0-0.3); EOSINOPHILS % (AUTO) 1 % (0-10); HEMATOCRIT 31 % (35-52); HEMOGLOBIN 10.3 g/dL (11.5-16.0); LYMPHOCYTES # (AUTO) 1.1 10^3/uL (1.0-4.0); LYMPHOCYTES % (AUTO) 26 % (12-44); MEAN CORPUSCULAR HEMOGLOBIN 32 pg (25-34); MEAN CORPUSCULAR HGB CONC 33 g/dL (32-36); MEAN CORPUSCULAR VOLUME 96 fL (80-99); MEAN PLATELET VOLUME 10.2 fL (9.0-12.2); MONOCYTES # (AUTO) 0.3 10^3/uL (0.0-1.0); MONOCYTES % (AUTO) 6 % (0-12); NEUTROPHILS # (AUTO) 2.8 10^3/uL (1.8-7.8); NEUTROPHILS % (AUTO) 66 % (42-75); PLATELET COUNT 95 10^3/uL (130-400); WHITE BLOOD COUNT 4.3 10^3/uL (4.3-11.0)
[2022-12-12 05:21] LABS: CALCIUM 8.2 MG/DL (8.5-10.1); CREATININE SERUM 0.55 MG/DL (0.60-1.30); POTASSIUM 3.8 MMOL/L (3.6-5.0)
[2022-12-12] MEDS: POTASSIUM CL 10MEQ/50ML IVPB 50 ML IV SCH (05:49)
[2022-12-12] MEDS: POTASSIUM BICARB 20 MEQ (EFFER-K) TABLET PO SCH (05:49)
[2022-12-12] MEDS: KCL 20 MEQ TAB (K-DUR) PO SCH (05:49)
[2022-12-12] MEDS: MAGNESIUM 1 GM/100 ML IVPB 100 ML IV SCH (05:50)
[2022-12-12 06:48] LABS: SMEAR SCAN COMMENT YES
[2022-12-12 07:07] VITALS: BP 134/71
[2022-12-12] MEDS ORDERED: KCL 10 MEQ TAB (MICRO K) PO ONE ×2 (09:00→11:00)
[2022-12-12] MEDS ORDERED: KCL 20 MEQ TAB (K-DUR) PO ONE (09:00)
[2022-12-12] MEDS: DOCUSATE SODIUM 100 MG (COLACE) CAP PO SCH ×2 (09:45→19:48)
[2022-12-12] MEDS: SENNOSIDES 8.6 MG (SENOKOT) TAB PO SCH ×2 (09:45→19:48)
--- NOTE | 2022-12-12 10:11 | Progress Note - Surgery ---
Subjective Date Seen by a Provider: Dec 12, 2022 Time Seen by a Provider: 10:09 Subjective/Events-last exam No significant change from yesterday except right hand continues to decrease pain and swelling. Left neck same as yesterday. Minimally tender. Denies n/v fever sweats chills shortness of breath or chest pain. Objective Exam Vital Signs Date Time Temp Pulse Resp B/P (MAP) Pulse Ox O2 Delivery O2 Flow Rate FiO2 12/12/22 07:14 96 Nasal Cannula 2.00 12/12/22 07:07 36.6 105 18 134/71 (92) 91 Room Air 12/12/22 02:36 93 Nasal Cannula 2.00 12/11/22 22:00 38.0 86 18 136/86 (103) 90 Room Air 0.00 0.00 12/11/22 21:43 38.0 12/11/22 21:30 90 Room Air 12/11/22 19:25 90 Room Air 0.00 12/11/22 15:05 90 Room Air 0.00 12/11/22 11:25 36.0 86 18 113/70 (84) 96 Room Air I & O 12/12/22 07:00 Intake Total 2720 ml Output Total 2600 ml Balance 120 ml Capillary Refill : General Appearance: No Apparent Distress, Chronically ill HEENT: PERRL/EOMI, Other (perioral skin lesions) Neck: Normal Inspection, Tender Lateral (left posterolateral very minimal) Respiratory: Chest Non Tender, No Accessory Muscle Use, No Respiratory Distress Cardiovascular: Regular Rate, Rhythm, No JVD, Systolic Murmur Gastrointestinal: non tender, soft Extremity: No Pedal Edema, Swelling (tenderness and swelling right wrist decreasing and less tender) Neurologic/Psychiatric: Alert, Depressed Affect Skin: Normal Color, Warm/Dry Lymphatic: No Adenopathy Results Lab Laboratory Tests 12/12/22 04:41: White Blood Count 4.3, Red Blood Count 3.25L, Hemoglobin 10.3L, Hematocrit 31L, Mean Corpuscular Volume 96, Mean Corpuscular Hemoglobin 32, Mean Corpuscular Hemoglobin Concent 33, Red Cell Distribution Width 15.5H, Platelet Count 95L, Mean Platelet Volume 10.2, Immature Granulocyte % (Auto) 1, Neutrophils (%) (Auto) 66, Lymphocytes (%) (Auto) 26, Monocytes (%) (Auto) 6, Eosinophils (%) (Auto) 1, Basophils (%) (Auto) 0, Neutrophils # (Auto) 2.8, Lymphocytes # (Auto) 1.1, Monocytes # (Auto) 0.3, Eosinophils # (Auto) 0.1, Basophils # (Auto) 0.0, Immature Granulocyte # (Auto) 0.1, Percent Immature Platelet Fraction 3.9, Sodium Level 138, Potassium Level 3.8, Chloride Level 108H, Carbon Dioxide Level 21, Anion Gap 9, Blood Urea Nitrogen 4L, Creatinine 0.55L, Estimat Glomerular Filtration Rate 107, BUN/Creatinine Ratio 7, Glucose Level 106H, Calcium Level 8.2L, Magnesium Level 2.0, Smear Scan YES Microbiology 12/08/22 Blood Culture - Preliminary, Resulted No growth Assessment/Plan Assessment/Plan Assessment/Plan Pneumonia Swelling of right extremity Methamphetamine use Neck Pain Esophageal thickening On exam did not feel any abnormality to the left neck. Suspect this may be from trauma as well versus small abscess or synovial cyst. Her pain is improving. If any worsening would get an MRI to further evaluate. Ortho consulted for wrist possible septic arthritis Recommended cessation of methamphetamine use Will need egd as outpatient- will follow up after discharge to set up Will sign off, call if needed. SINDY SANTOS DO Dec 12, 2022 10:11
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
[2022-12-12] MEDS: ENOXAPARIN 40 MG/0.4 ML (LOVENOX) SYR SC SCH (18:00)
[2022-12-12 21:53] VITALS: BP 119/73
[2022-12-12] MEDS: MELATONIN 3 MG TABLET PO PRN (22:07)
[2022-12-13 01:46] VITALS: BP 129/76
[2022-12-13] MEDS: NAFCILLIN INJECTION 2,000 MG in NS (IVPB) 100 ML IV SCH ×6 (01:54→21:45)
[2022-12-13] MEDS: ACETAMINOPHEN 325 MG TABLET PO PRN (01:55)
[2022-12-13] MEDS: RT-ALBUTEROL/IPRATROPIUM 3 ML (DUONEB) VIAL IH SCH ×4 (04:13→19:34)
[2022-12-13 05:50] LABS: BASOPHILS % (AUTO) 0 % (0-10); HEMOGLOBIN 10.1 g/dL (11.5-16.0); MONOCYTES # (AUTO) 0.2 10^3/uL (0.0-1.0)
[2022-12-13 05:52] LABS: EOSINOPHILS # (AUTO) 0.1 10^3/uL (0.0-0.3); EOSINOPHILS % (AUTO) 1 % (0-10); HEMATOCRIT 30 % (35-52); LYMPHOCYTES % (AUTO) 28 % (12-44); MEAN CORPUSCULAR HEMOGLOBIN 32 pg (25-34); MEAN CORPUSCULAR HGB CONC 33 g/dL (32-36); MEAN CORPUSCULAR VOLUME 97 fL (80-99); MEAN PLATELET VOLUME 10.2 fL (9.0-12.2); MONOCYTES % (AUTO) 6 % (0-12); NEUTROPHILS # (AUTO) 2.4 10^3/uL (1.8-7.8); NEUTROPHILS % (AUTO) 63 % (42-75); PLATELET COUNT 98 10^3/uL (130-400); WHITE BLOOD COUNT 3.7 10^3/uL (4.3-11.0)
[2022-12-13 06:03] LABS: CALCIUM 8.1 MG/DL (8.5-10.1); CREATININE SERUM 0.53 MG/DL (0.60-1.30); POTASSIUM 3.7 MMOL/L (3.6-5.0)
[2022-12-13] MEDS: MAGNESIUM 1 GM/100 ML IVPB 100 ML IV SCH (06:05)
[2022-12-13] MEDS: POTASSIUM CL 10MEQ/50ML IVPB 50 ML IV SCH (06:05)
[2022-12-13] MEDS: POTASSIUM BICARB 20 MEQ (EFFER-K) TABLET PO SCH (06:06)
[2022-12-13] MEDS: KCL 20 MEQ TAB (K-DUR) PO SCH (06:06)
[2022-12-13 08:00] VITALS: BP 137/88
[2022-12-13] MEDS ORDERED: KCL 20 MEQ TAB (K-DUR) PO ONE (09:00)
--- NOTE | 2022-12-13 09:06 | Progress Note - Ortho ---
Progress Note Subjective Date of Exam 12/13/22 Chief Complaint R Wrist pain HPI/Events since last exam much improved, still with some soreness Review of Systems - Allergies: Coded Allergies: Sulfa (Sulfonamide Antibiotics) (Verified Allergy, Unknown, 12/07/22) codeine (Verified Allergy, Unknown, 12/07/22) Home Meds Discontinued Scripts Sulfamethoxazole/Trimethoprim (Bactrim Ds Tablet) 1 Each Tablet, 1 EACH PO BID for 7 Days, #14 TAB 0 Refills Prov:TABATHA FAYE 05/06/21 Hydrocodone/Acetaminophen (Hydrocodone-Acetamin 5-325 mg) 1 Each Tablet, 1 TAB PO Q4H PRN for PAIN-MODERATE (5-7), #20 TAB Prov:GABY ESTEVES SPORTS PHYSIOTHERAPIST 04/03/21 Tramadol Hcl (Tramadol Hcl) 50 Mg Tablet, 50 MG PO Q6H for Pain, #20 TAB Prov:JAXSON HASSAN MD 09/26/14 Objective Exam R Wrist: Swelling significantly improved, motion in thumb and fingers improved but still with some stiffness, remains diffusely tender but improved Vital Signs Vital Signs Date Time Temp Pulse Resp B/P (MAP) Pulse Ox O2 Delivery O2 Flow Rate FiO2 12/13/22 07:28 93 Room Air 12/13/22 04:35 91 21 12/13/22 01:46 36.3 89 20 129/76 (93) 96 Room Air 12/12/22 21:53 37.6 104 20 119/73 (88) 93 Room Air 12/12/22 20:45 92 Room Air 12/12/22 18:42 92 Room Air 12/12/22 14:47 Room Air I & O 12/13/22 07:00 Intake Total 2030 ml Output Total 1700 ml Balance 330 ml Lab Results Laboratory Tests 12/13/22 05:38: White Blood Count 3.7L, Red Blood Count 3.14L, Hemoglobin 10.1L, Hematocrit 30L, Mean Corpuscular Volume 97, Mean Corpuscular Hemoglobin 32, Mean Corpuscular Hemoglobin Concent 33, Red Cell Distribution Width 15.7H, Platelet Count 98L, Mean Platelet Volume 10.2, Immature Granulocyte % (Auto) 1, Neutrophils (%) (Auto) 63, Lymphocytes (%) (Auto) 28, Monocytes (%) (Auto) 6, Eosinophils (%) (Auto) 1, Basophils (%) (Auto) 0, Neutrophils # (Auto) 2.4, Lymphocytes # (Auto) 1.0, Monocytes # (Auto) 0.2, Eosinophils # (Auto) 0.1, Basophils # (Auto) 0.0, Immature Granulocyte # (Auto) 0.0, Percent Immature Platelet Fraction 3.2, Sodium Level 139, Potassium Level 3.7, Chloride Level 111H, Carbon Dioxide Level 21, Anion Gap 7, Blood Urea Nitrogen 5L, Creatinine 0.53L, Estimat Glomerular Filtration Rate 108, BUN/Creatinine Ratio 9, Glucose Level 99, Calcium Level 8.1L, Magnesium Level 2.0 Microbiology 12/08/22 Blood Culture - Preliminary, Resulted No growth Assessment and Plan Assessment R 1st [facility] OA Problem List R 1st [facility] OA Plan Improving, continue to work on motion, continue analgesic rub Final Diagonsis R 1st [facility] OA Level of the visit: Level 3 STEPHANIE LYON MD Dec 13, 2022 09:06
[2022-12-13] MEDS: DOCUSATE SODIUM 100 MG (COLACE) CAP PO SCH ×2 (09:16→19:53)
[2022-12-13] MEDS: SENNOSIDES 8.6 MG (SENOKOT) TAB PO SCH ×2 (09:16→19:53)
--- NOTE | 2022-12-13 11:41 | Physical Therapy Daily Note ---
PT Daily Note-Current Subjective Patient agrees to PT. Pain Section J - Health Conditions 1. Rarely or not at all 2. Occasionally 3. Frequently 4. Almost constantly 8. Unable to answer Pain Effect on Sleep: 1 Pain Interference with Therapy: 1 Pain Interference w/Day-to-Day: 1 Mental Status Patient Orientation: Normal For Age Attachments: IV Transfers SCALE: Activities may be completed with or without assistive devices. 2-Numbkdacpc-ztcuepy completes the activity by him/herself with no assistance from a helper. 5-Set-up or Clean-up Assistance-helper sets up or cleans up; patient completes activity. [place] assists only prior to or following the activity. 4-Supervision or Touching Assistance-helper provides verbal cues and/or touching/steadying and/or contact guard assistance as patient completes ac tivity. Assistance may be provided throughout the activity or intermittently. 3-Partial/Moderate Assistance-helper does LESS THAN HALF the effort. [place] lifts, holds or supports trunk or limbs, but provides less than half the effort. 2-Substantial/Maximal Assistance-helper does MORE THAN HALF the effort. [place] lifts or holds trunk or limbs and provides more than half the effort. 4-[place]-rtpzds does ALL the effort. Patient does none of the effort to complete the activity. Or, the assistance of 2 or more helpers is required for the patient to complete the activity. If activity was not attempted, code reason: 7-Patient Refused. 9-Not Applicable-not attempted and the patient did not perform the activity before the current illness, exacerbation or injury. 10-Not Attempted due to Environmental Limitations-(lack of equipment, weather restraints, etc.). 88-Not Attempted due to Medical Conditions or Safety Concerns. Sit to Stand (QC): 6 Toilet Transfer (QC): 6 Weight Bearing no wt bearing through right wrist due to pain Gait Training Distance: 250' Walk 10 feet (QC): 6 Walk 50 ft with 2 Turns(QC): 6 Walk 150 ft (QC): 6 Gait Assistive Device: None patient negotiated IV pole independently with functional gait sequence Assessment Patient is currently at independent PLOF with all gross motor skills safely and does not require continued skilled PT intervention at this time. PT Prison Goals Prison Goals PT Prison Goals Time Frame: Dec 17, 2022 Roll Left & Right (QC): 6 Sit to Lying (QC): 6 Lying-Sitting on Side/Bed(QC): 6 Sit to Stand (QC): 6 Chair/Kqf-rs-Jvley Xfer(QC): 6 Toilet Transfer (QC): 6 Walk 150 ft (QC): 6 PT Plan Treatment/Plan Treatment Plan: Discontinue PT, goals met Treatment Duration: Dec 17, 2022 Frequency: 6 times per week Estimated Hrs Per Day: .25 hour per day Patient and/or Family Agrees t: Yes Time Time In: 1100 Time Out: 1110 DATE: Dec 13, 2022 Total Billed Treatment Time: 10 Total Billed Treatment 1 visit FA 10 min JOVANY WALLACE PT Dec 13, 2022 11:41
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
[2022-12-13 15:55] VITALS: BP 117/74
[2022-12-13] MEDS: CYCLOBENZAPRINE 10 MG (FLEXERIL) TAB PO PRN ×2 (16:02→23:52)
[2022-12-13] MEDS: ENOXAPARIN 40 MG/0.4 ML (LOVENOX) SYR SC SCH (16:02)
[2022-12-13] MEDS ORDERED: ASPIRIN 325 MG (5 GR) TABLET PO NR (19:30)
[2022-12-13 23:05] VITALS: BP 130/77
[2022-12-14] MEDS: NAFCILLIN INJECTION 2,000 MG in NS (IVPB) 100 ML IV SCH ×2 (01:57→05:09)
[2022-12-14 06:13] LABS: MEAN CORPUSCULAR HEMOGLOBIN 32 pg (25-34); MEAN CORPUSCULAR HGB CONC 33 g/dL (32-36); MEAN CORPUSCULAR VOLUME 97 fL (80-99); MEAN PLATELET VOLUME 10.5 fL (9.0-12.2)
[2022-12-14 06:15] LABS: BASOPHILS % (AUTO) 0 % (0-10); EOSINOPHILS # (AUTO) 0.1 10^3/uL (0.0-0.3); EOSINOPHILS % (AUTO) 1 % (0-10); HEMATOCRIT 30 % (35-52); HEMOGLOBIN 9.9 g/dL (11.5-16.0); LYMPHOCYTES # (AUTO) 1.2 10^3/uL (1.0-4.0); LYMPHOCYTES % (AUTO) 28 % (12-44); MONOCYTES # (AUTO) 0.3 10^3/uL (0.0-1.0); MONOCYTES % (AUTO) 7 % (0-12); NEUTROPHILS # (AUTO) 2.6 10^3/uL (1.8-7.8); NEUTROPHILS % (AUTO) 63 % (42-75); PLATELET COUNT 97 10^3/uL (130-400); WHITE BLOOD COUNT 4.1 10^3/uL (4.3-11.0)
[2022-12-14 06:35] LABS: CREATININE SERUM 0.6 MG/DL (0.60-1.30); MAGNESIUM 1.9 MG/DL (1.6-2.4); POTASSIUM 3.6 MMOL/L (3.6-5.0)
[2022-12-14] MEDS: KCL 20 MEQ TAB (K-DUR) PO SCH (06:54)
[2022-12-14] MEDS: POTASSIUM BICARB 20 MEQ (EFFER-K) TABLET PO SCH (06:54)
[2022-12-14] MEDS: MAGNESIUM 1 GM/100 ML IVPB 100 ML IV SCH ×3 (06:54→09:23)
[2022-12-14] MEDS: POTASSIUM CL 10MEQ/50ML IVPB 50 ML IV SCH (06:54)
[2022-12-14] MEDS: RT-ALBUTEROL/IPRATROPIUM 3 ML (DUONEB) VIAL IH SCH (07:04)
[2022-12-14 07:19] VITALS: BP 132/75
[2022-12-14] MEDS: CYCLOBENZAPRINE 10 MG (FLEXERIL) TAB PO PRN (08:14)
[2022-12-14] MEDS: DOCUSATE SODIUM 100 MG (COLACE) CAP PO SCH (08:15)
[2022-12-14] MEDS: SENNOSIDES 8.6 MG (SENOKOT) TAB PO SCH (08:15)
[2022-12-14] MEDS ORDERED: ASPIRIN 325 MG (5 GR) TABLET PO SCH (09:00)
[2022-12-14] MEDS ORDERED: KCL 20 MEQ TAB (K-DUR) PO ONE (09:00)
[2022-12-14] MEDS ORDERED: ACET325T49 PO (12:00)
[2022-12-14] MEDS ORDERED: CYCL10TA25 PO (12:00)
[2022-12-14] MEDS ORDERED: AMOX500T2 PO (12:00)
--- NOTE | 2022-12-14 12:02 | Discharge Inst-Simple/Standard ---
Discharge Inst-Standard Discharge Medications New, Converted or Re-Newed RX: Transmitted to Pharmacy Patient Instructions/Follow Up Plan of Care/Instructions/FU: Please continue to take your medications as written. Please follow up with your primary care doctor to follow up this hospital stay. Activity as Tolerated: Yes Discharge Diet: No Restrictions Return to The Hospital For: Chest pain, shortness of breath, fever, weakness, if you feel you are getting worse. BREANNA LARES MD Dec 14, 2022 12:02
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
[2022-12-14 13:37] VITALS: BP 132/75
== END 2022-12-14 13:37 | disposition home or self-care (01) | DRG 871 ==
LOC: EEVIPCON 19:08 → 4TH 19:08
PROVIDERS: ADMIT Internal Medicine; ATTEND Internal Medicine
DX: A40.0 Sepsis due to streptococcus, group A (principal); J18.9 Pneumonia, unspecified organism; E87.20 Acidosis, unspecified; E87.1 Hypo-osmolality and hyponatremia; R65.20 Severe sepsis without septic shock; K74.60 Unspecified cirrhosis of liver; D69.6 Thrombocytopenia, unspecified; K22.9 Disease of esophagus, unspecified; F15.10 Other stimulant abuse, uncomplicated; Z91.410 Personal history of adult physical and sexual abuse; E87.6 Hypokalemia; M18.11 Unilateral primary osteoarthritis of first carpometacarpal joint, right hand; M19.031 Primary osteoarthritis, right wrist; M54.2 Cervicalgia; J02.0 Streptococcal pharyngitis; H54.7 Unspecified visual loss; Z88.5 Allergy status to narcotic agent; Z88.2 Allergy status to sulfonamides
CPT/HCPCS: 36415; 70491; 71045; 71275; 73110; 73201; 80048; 80053; 80306; 83605; 83690; 83735; 83880; 84484; 85025; 85379; 85610; 85652; 85730; 86141; 87040; 87077; 87186; 94640; 94664; 94760